=== PATIENT | female | born 2005 | race Caucasian/White ===

== ENCOUNTER 2024-09-13 00:01 | Emergency (ER) | payer BC, SELFPAY ==
[2024-09-13 00:03] VITALS: BP 126/78; PULSE 75; RESP 16; TEMP 36.3; O2SAT 98; BMI 19.8
--- NOTE | 2024-09-13 00:53 | ED_ITS ---
HPI - General Adult General Chief complaint: Animal Bite Stated complaint: dog bite to the face Time Seen by Provider: 09/13/24 00:02 Source: patient and family Mode of arrival: ambulatory Limitations: no limitations History of Present Illness HPI narrative: 19-year-old female presents to the emergency department for evaluation of a dog bite to the face that happened about 30 minutes prior to arrival. This was a rescue dog that the family owns and cares for. He is up-to-date on vaccines and has been appropriately tested, medical needs are all managed. The dog has not previously shown aggression per their report but patient need in to kiss him good night and he bit her, causing a laceration underneath the right eye and left nostril area. No oral injury, no head trauma otherwise. No other areas of injury. Patient is not immunocompromised, taking immunosuppressants or has a history of immune disease. They did not wash out the wound. Last tetanus shot is unknown, but did have her routine childhood vaccines. Past medical history notable for some depression, she reports that this is well managed on her combination of nortriptyline, Adderall, trazodone. No known drug allergies. ROS is notable for the skin changes as above. Denies any other HEENT, respiratory, skin, neurological or muscular changes. Related Data Home Medications ?Medication ?Instructions ?Recorded ?Confirmed bupropion HCl 150 mg 24 hr tablet, 150 mg PO DAILY 09/13/24 09/13/24 extended release dextroamphetamine-amphetamine ER 1 cap PO DAILY 09/13/24 09/13/24 20 mg 24hr capsule,extend release propranolol 10 mg tablet mg PO 09/13/24 sertraline 100 mg tablet mg PO 09/13/24 Allergies Allergy/AdvReac Type Severity Reaction Status Date / Time No Known Drug Allergies Allergy Verified 09/13/24 00:07 [facility] Social History Smoking Status: Never smoker Non-prescribed substance use: denies use service: No Exam Const: Vital Signs, click to edit/add: Vital Signs - 24 hr 09/13/24 00:03 Temperature 97.3 F L Pulse Rate [Left P ulse Oximeter] 75 Respiratory Rate 16 Blood Pressure [Ri ght Upper Arm] 126/78 Pulse Oximetry 98 Oxygen Delivery Me thod Room Air Documenting provider has reviewed patient's vital signs: yes Common normals: no apparent distress General appearance: cooperative Other: Funny, articulate. Excellent mentation, good historian. HENMT: Other: Scalp and hairline with no signs of injury, no skull depression. There is a 2 cm perfectly horizontal laceration 2 cm inferior to the right eye, along the cheek bone. It gapes 4 mm in the center. Dermal depth, oozing but no pumping.. There is a slight abrasion underneath the left eye, no gaping. There is a 8 mm jagged puncture wound at the left nostril near the superior pole of the nasal labial fold. This does articulate with the inner nasal mucosa. It does gape with movement of the nose and mouth. Not bleeding.. Eye: Common normals: PERRL, EOMs intact bilaterally and conjunctivae normal Conjunctiva: conjunctiva(e) normal Pupil: PERRL Neck & C-Spine: Common normals: full ROM and no lymphadenopathy General: normal visual inspection Resp: Common normals: normal respiratory effort Effort & inspection: able to speak in complete sentences Psych: Attention/concentration: attention grossly intact Memory/cognition: memory grossly intact Insight: insight good Judgement: judgment good Skin: Narrative: No other areas identified besides the facial lesions Course Course ED Course: Dog bite from known animal, appropriately rabies tested and can be observed for signs and symptoms of rabies. Counseled patient that cosmetically we could have poor outcome if we do not suture closed the wounds but this would slightly increase the risk of infection. We can mitigate some of this risk with the use of oral antibiotics like Augmentin. Verbal consent was obtained to proceed. Procedure: Laceration repair: Wounds were examined, wiped with alcohol wipe and then injected with 2 mL of lidocaine to the under right eye, 1 mL to the left nostril lesion. It was then meticulously cleaned with iodine, no signs of foreign body seen. Attention was 1st to the infraorbital lesion on the right. This was closed in a running fashion with 6 0 nylon suture, 5 throws total. Excellent cosmetic closure and hemostasis. Attention was then turned to the nostril lesion. A [id number] stitch was used to close this with good tissue reapproximation and hemostasis. Both were well tolerated. Both covered in antibiotic ointment and Band-Aids. Instructed on wound care. Try to keep the current Band-Aids on for at least the next 8 hours. Then may shower as usual. Try to avoid aggressive scrubbing over the suture and avoid moisturizers and topical cause medics to the wounds for the next week. Apply antibiotic ointment or plain Vaseline twice daily. Suture removal in 5 days, will need to make a clinic appointment. Consider covering with Dermabond if not completely closed once sutures are removed but early removal will reduce the risk of scarring. Instructed on use of sunblock to help improve cosmetic outcomes for the next few months. We discussed signs and symptoms of infection. More likely to happen a few days after the injury not in the 1st 24 hours. Okay to use Tylenol and/or ibuprofen for mild discomfort. Augmentin 875 p.o. b.i.d. for 7 days, start tonight. Written instructions provided, alarm symptoms reviewed. Vital Signs Vital signs: Initial Vital Signs Temperature 97.3 F L 09/13/24 00:03 Temperature Source Temporal Artery Scan 09/13/24 00:03 Pulse Rate 75 09/13/24 00:03 Pulse Rhythm Regular 09/13/24 00:03 Respiratory Rate 16 09/13/24 00:03 Blood Pressure 126/78 09/13/24 00:03 Blood Pressure Mean 94 09/13/24 00:03 Blood Pressure Position Sitting 09/13/24 00:03 Pulse Oximetry 98 09/13/24 00:03 Oxygen Delivery Method Room Air 09/13/24 00:03 Vital Signs Temperature 97.3 F L 09/13/24 00:03 Pulse Rate 75 09/13/24 00:03 Respiratory Rate 16 09/13/24 00:03 Blood Pressure 126/78 09/13/24 00:03 Pulse Oximetry 98 09/13/24 00:03 Oxygen Delivery Method Room Air 09/13/24 00:03 Temperature 97.3 F L 09/13/24 00:03 Pulse Rate 75 09/13/24 00:03 Respiratory Rate 16 09/13/24 00:03 Blood Pressure 126/78 09/13/24 00:03 Pulse Oximetry 98 09/13/24 00:03 Oxygen Delivery Method Room Air 09/13/24 00:03 Discharge Plan Discharge Clinical Impression: Dog bite Patient Disposition: Home w/ Parent or Adult Condition: Improved Instructions: Animal Bite (ED) Additional Instructions: As we discussed, closure of these wounds can increase the risk of infection but cosmetically it was the right choice in this situation. The swelling and bruising around the eye will be much more noticeable tomorrow. It will take up to a week to improve. Try to keep the current Band-Aid on for 12 hours if possible. Sports would not be prohibited for the next 48 hours but they do increase your risk of the stitches coming out, worse scarring and infection. Plus, your eye is likely to be swollen and your vision may not be ideal, putting you at risk of other injuries. It would be in your best interest to sit this match out, but not strictly prohibited. Please call the clinic and make an appointment to have the stitches removed in about 5-6 days. The wound will not be completely healed at that point but this will reduce the risk of scarring. Please bring this paperwork with you to the appointment. Underneath the right eye, a total of 5 stitches were placed in a running fashion. Clipping either not and then pulling on the opposite 1 should allow the remaining suture to slide easily. The left nostril has a single figure of 8 stitch, should come out in 1 pull. Please apply antibiotic ointment a couple of hours before the appointment to soften the skin and allow the suture to slide out more easily. It is very small suture and may be difficult to see. Try not to shower for the 1st 8-10 hours. After that, you may shower as usual but be very gentle about washing around the stitches areas and do not apply any moisturizer or makeup around the stitch. Keep the stitches covered with Vaseline or antibiotic ointment, applied twice daily. You may cover with Band- Aids also if you prefer. Infections are fairly rare but would manifest as increased redness, drainage and swelling and would typically not occur in the 1st couple of days. To help reduce the risk of infection I have started you on an antibiotic, Augmentin. Pick this up from the vending machine and take your 1st dose right away. Continue taking 1 pill 2 times per day for 7 days. You ma y use Tylenol 1000 mg every 6 hours and or ibuprofen 600 mg every 6 hours as needed for discomfort. Be careful with ice as thermal damage could worsen things. You are cleared to return to work. Activity Level: Activity as Tolerated Discharge Diet: Regular Prescriptions: No Action sertraline 100 mg tablet PO propranolol 10 mg tablet PO dextroamphetamine-amphetamine 20 mg capsule,extended release 24hr 1 cap PO DAILY bupropion HCl 150 mg tablet extended release 24 hr 150 mg PO DAILY Stand Alone Forms: [employer] Info Instructions
[2024-09-13] MEDS: TETANUS-DIPHTHERIA TOXOIDS/PF 0.5 ML SYRINGE IM (00:54)
== END 2024-09-13 01:03 | disposition home or self-care (01) ==
LOC: ED 00:57
PROVIDERS: Emergency Provider Family Medicine; PCP Pediatrics
DX: S01.21XA Laceration without foreign body of nose, initial encounter (principal); S01.111A Laceration without foreign body of right eyelid and periocular area, initial encounter; W54.0XXA Bitten by dog, initial encounter; Z23 Encounter for immunization
CPT/HCPCS: 12011; 90471; 90714; 99283

== ENCOUNTER 2024-09-18 21:39 | Emergency (ER) | payer BC, SELFPAY ==
--- OUTSIDE RECORDS SUMMARY | 2024-09-16 14:20 | XMS_ITS | Encounter Summary ---
Author Organization [facility] Address [address] [address] Care Team Providers Care Supervisor Maintenance And Custodians Name Role Phone Jolene Goyal PA-C Primary Care Provider Reason for Visit * Reason Comments Infection, Wound Right under eye dog bite happened 09/13, stitches [facility], possible suture removal todayPus leaking from wound as of this morning, pain in the area of the sutures, swelling On oral abx Tdap updated Encounter Details Date Type Department Care Team (Late st Contact Info) Description 09/16/2024 2:20 PM CDT Office Visit [place] [facility] [id number] [facility] [id number] [place] [id number] Tam Ortega PA-C [address] [facility] [place] [address] Wound infection; Infected dog bite Social History Tobacco Use Types Packs/Day Years Used Date Smoking Tobacco: Never Passive Smoke Exposure: Never Smokeless Tobacco: Never Alcohol Use Standard Drinks/Week Comments Never 0 (1 standard drink = 0.6 oz pur e alcohol) PHQ-2 Answer Date Recorded PHQ-2 Score 1 10/29/2023 Financial Resource Strain Answer Date R ecorded Is it hard for you to pay fo r the very basics like food, housing, medical care or heating? No 12/05/2022 Food Insecurity Answer Date Recorded Does your food run out before you have the money to buy more? No 12/05/2022 Transportation Needs Answer Date Record ed Does a lack of transportatio n keep you from your medical appointments or from getting your medications? No 023 Comments No Sex and Gender Information Value Date Recorded Sex Assigned at Not on file Legal Sex Female 9:17 PM CDT Gender Identity Not on file Sexual Orientation Not on file documented as of this encounter Last Filed Vital Signs Vital Sign Reading Time Taken Comments Blood Pressure 106/63 09/16/2024 1:56 PM CDT Pulse 81 09/16/2024 1:56 PM CDT Temperature 36.6 C (97.8 F) 09/16/2024 1:56 PM CDT Respiratory Rate 18 09/16/2024 1:56 PM CDT Oxygen Saturation 98% 09/16/2024 1:56 PM CDT Inhaled Oxygen Concentration - - Weight - - Height - - Body Mass Index - - documented in this encounter Patient Instructions * Patient Instructions* Tam Ortega PA-C - 09/16/2024 2:20 PM CDT Begin taking the new antibiotics tonight with dinner. Return to urgent care tomorrow for a recheck of the wound. If overnight, you experience increasing redness, pain, fever or flu-like symptoms you need to go directly to the emergency room. Begin taking a daily probiotic. documented in this encounter Progress Notes * Tam Ortega PA-C - 09/16/2024 2:20 PM CDT Images from the original note were not included. Betty Quintero is a 19 y.o.female presents to the Urgent Care for Infection, Wound (Right under eye dog bite happened 09/13, stitches placed at [facility], possible suture removal today//Pus leaking from wound as of this morning, pain in the area of the sutures, swelling //On oral abx /Tdap updated ) Taking Augmentin Patient presents to urgent care for a wound check. She experienced a dog bite under her right eye on September 13, 3 days ago. She went to the ER and had sutures placed. She was placed on Augmentin and her Tdap was updated. Today she noticed pus leaking from the wounds. The site has been more painful and swollen. She continues to have swelling around her right eye which was present initially after the dog bite. She denies increased redness around the bite area. She denies fever or flu-like symptoms. Remainder of review of systems is negative. 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 disorder Dyscalculia Lactose intolerance Other specified depressive episodes Chronic pain of right knee Tension headache Adverse Drug Reactions: Lactose Medications: amphetamine-dextroamphetamine XR, buPROPion, propranolol, sertraline, tiZANidine, and traZODone Family History: Family History Problem Relation Name Age of Onset Allergies Mother Cancer, Uterine Maternal Grandmother Other (pneumonia) Maternal Grandmother Renal Failure Maternal Grandfather dialysis Heart Attack Maternal Grandfather , 77 Cancer, Breast Paternal Grandmother Diabetes Paternal Grandmother Cancer, Brain Paternal Grandfather , 65 Cancer, Lung Paternal Grandfather Other (epilepsy) Paternal Grandfather Social History: Social History Tobacco Use Smoking status: Never Passive exposure: Never Smokeless tobacco: Never Vaping Use Vaping status: Never Used Substance Use Topics Alcohol use: Never Drug use: Never Review of Systems: All systems were reviewed and found to be negative except as noted above. OBJECTIVE: General: NAD Skin: Mucous membranes are moist, no sign of dehydration. Head: Normocephalic. Eyes: PERRLA, full EOM. External exams normal. Patient has swelling surrounding the right upper andlower eyelid. Ears: Normal pinnae, canals. TM's:[normal] Nose: Patent, without deformity. Throat: Moist mucous membranes without lesions, erythema, or exudate. Cheek: Patient has a 4 cm long horizontal laceration across her right cheek. There is small amount of yellow exudate from the site. A running suture is used to approximate the wound. There is mild surrounding erythema but no obvious cellulitis. Respiratory: Normal respiratory effort. Lungs are clear with good breath sounds. Heart: RR without murmurs, rubs, or gallops. Vital Signs: BP 106/63 (BP Location: Right Arm, BP Cuff Size: Regular) Pulse 81 Temp 36.6 ??C (97.8 ??F) (Oral) Resp 18 SpO2 98% Orders Placed This Encounter ampicillin-sulbactam (UNASYN) injection 3 g Labs: No results found for any visits on 09/16/24. ASSESSMENT: 1. Wound infection 2. Infected dog bite Medical Decision Makin-year-old female presenting for a wound check after a dog bite 3 days ago. Today she noticed pus from the site. Physical exam shows a small amount of exudate from the laceration site. I did remove the sutures. A moderate amount of thick, yellow drainage was able to be extracted from the wound. This was sent for culture. Patient does have swelling to her upper and lower eyelid however this has been present since the initial dog bite. There is very mild erythema surrounding the laceration which appears more secondary to the healing process than true cellulitis. At this point, I would like to trial outpatient antibiotics now that the wound has been opened and drained. The patient will stop taking her Augmentin. I placed her on Bactrim and clindamycin to be taken asdirected. She will be contacted if her culture shows the need to change her antibiotic. Patient wasgiven a dose of Unasyn in clinic. I recommend close follow-up. I would like her to return to urgentcare tomorrow for a recheck. If there is increase in redness, exudate or if she would develop fever she needs to go directly to the emergency room. PLAN: Orders Placed This Encounter ampicillin-sulbactam (UNASYN) injection 3 g There are no Patient Instructions on file for this visit. Orders Placed This Encounter Medications DISCONTD: cefTRIAXone (ROCEPHIN) 1,000 mg in lidocaine PF (XYLOCAINE) 1 % 350 mg/mL IM injection ampicillin-sulbactam (UNASYN) injection 3 g RTC p.r.n. Total visit time was 30 minutes. documented in this encounter Nursing Notes * Beryl Mo RN - 09/16/2024 2:20 PM CDT Betty Quintero is a 19 y.o.female presents to the Urgent Care for Infection, Wound (Right under eye dog bite happened 09/13, stitches placed at [facility], possible suture removal today//Pus leaking from wound as of this morning, pain in the area of the sutures, swelling //On oral abx /Tdap updated ) Taking Augmentin documented in this encounter Plan of Treatment Pending Results Name Type Priority Associated Diagnoses Date /Time Aerobic Culture Microbiology Routine Wound infection Infected dog bite 09/16/2024 2:59 PM CDT documented as of this encounter Procedures Procedure Name Priority Date/Time Associated Diagnosis Comments AEROBIC CULTURE Routine 09/16/2024 2:59 PM CDT Wound infection Infected dog bite documented in this encounter Visit Diagnoses Diagnosis Wound infection Posttraumatic wound infection not elsewhere classified Infected dog bite Open wound(s) (multiple) of unspecified site(s), complicated documented in this encounter Administered Medications Inactive Administered Medications - up to 3 most recent administrations Medication Order MAR Action Action Date Dose Rate Site ampicillin-sulbactam (UNASYN) injection 3 g 3 g, Intramuscular, ONCE, On Sun09/16/24 at 1445, For 1 dose, Dilute 3 gram vial with 6.4 mL sterile water for injection. Final conentration is 375 mg/mL solutions (250mg ampicillin/125 mg sulbactam per mL)., Indications: Skin and Soft Tissue InfectionIndications:Skin and Soft Tissue Infection Given 09/16/2024 2:46 PM CDT 3 g O ther documented in this encounter Care Teams Supervisor Maintenance And Custodians Relationship Specialty Start Date End Date Jolene Goyal PA-C [id number] [place] [address] PCP - General Physician Terra Cotta Roofer 06/11/24 documented as of this encounter
--- OUTSIDE RECORDS SUMMARY | 2024-09-17 14:00 | XMS_ITS | Encounter Summary ---
Author Organization [employer] Address [address] [address] Care Team Providers Care Hoop Bender Tank Name Role Phone Jolene Goyal PA-C Primary Care Provider Reason for Visit * Reason Comments Animal Bite Follow-up Encounter Details Date Type Department Care Team (Late st Contact Info) Description 09/17/2024 2:00 PM CDT [facility] [address] [place] [address] Tam Ortega PA-C [address] [place] [address] Wound infection; Infected dog bite; Visit for wound check Social History Tobacco Use Types Packs/Day Years [...] Sign Reading Time Taken Comments Blood Pressure 99/70 09/17/2024 1:57 PM CDT Pulse 104 09/17/2024 1:57 PM CDT Temperature 36.8 C (98.3 F) 09/17/2024 1:57 PM CDT Respiratory Rate 16 09/17/2024 1:57 PM CDT Oxygen Saturation 98% 09/17/2024 1:57 PM CDT Inhaled Oxygen Concentration - - Weight - - Height - - Body Mass Index - - documented in this encounter Patient Instructions * Patient Instructions* Tam Ortega PA-C - 09/17/2024 2:00 PM CDT Continue to take the clindamycin and bactrim with food. Continue to monitor. If redness, pain or swelling worsens or you develop a fever, go to the ER. Text me with questions. documented in this encounter Progress Notes * Tam Ortega PA-C - 09/17/2024 2:00 PM CDT Images from the original note were not included. Pt was seen in the [facility] yesterday for care for a dog bite. Pt has been taking the prescribed medications and working on draining pus, per direction from provider. Pt here for follow up w/ Tam Ortega, as directed. Pt reports having upset stomach from abx - otherwise some improvement. Patient presents to urgent care for a recheck of a wound infection from a dog bite. I saw her yesterday in the urgent care. During that visit I was able to drain a moderate amount of pus from the wound on the patient's right cheek. At that time she had surrounding erythema and swelling around her right eye. She was afebrile. She was given an injection of Unasyn in clinic. She was then discharged home on Bactrim and clindamycin. She states overnight the redness has improved along with the swelling around her eye. She continues to be afebrile. She states the pain is improving as well. Remainderreview of systems is negative. 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 disorder Dyscalculia Lactose intolerance Other specified depressive episodes Chronic pain of right knee Tension headache Adverse Drug Reactions: Lactose Medications: amphetamine-dextroamphetamine XR, buPROPion, clindamycin, propranolol, sertraline, sulfamethoxazole-trimethoprim, tiZANidine, and traZODone Family History: Family History [...] Eyes: PERRLA, full EOM. External exams normal. Ears: Normal pinnae, canals. TM's:[normal] Nose: Patent, without deformity. Cheek: Patient has reduce inflammation and redness on her right cheek. The swelling around her right eye has been reduced. There is only a small amount of exudate from the wound. Throat: Moist mucous membranes without lesions, erythema, or exudate. Respiratory: Normal respiratory effort. Lungs are clear with good breath sounds. Heart: RR without murmurs, rubs, or gallops. Vital Signs: BP 99/70 (BP Location: Left Arm, BP Cuff Size: Small Adult/Large Pediatrics) Pulse (!) 104 Temp 36.8 ??C (98.3 ??F) (Oral) Resp 16 SpO2 98% Orders Placed This Encounter Complete Blood Count -W/Diff Labs: Results for orders placed or performed in visit on 09/17/24 Complete Blood Count-W/Diff Result Value Ref Range WBC 6.2 3.5 - 10.5 x10(9)/L RBC 4.08 3.90 - 5.03 x10(12)/L Hemoglobin 12.5 12.0 - 15.5 g/dL HCT 37.5 34.9 - 44.5 % MCV 91.9 80.0 - 100.0 fL MCH 30.6 27.6 - 33.3 pg MCHC 33.3 31.5 - 35.2 g/dL RDW 12.0 11.9 - 15.5 % Platelets 243 150 - 450 x10(9)/L Automated NRBC 0 <=0 /100 WBC Neutrophil Absolute 3.7 1.7 - 7.0 10(9)/L Lymphocyte Absolute 1.4 1.0 - 4.8 10(9)/L Monocyte Absolute 0.4 0.2 - 0.9 10(9)/L Eosinophil Absolute 0.6 (H) 0.0 - 0.5 10(9)/L Basophil Absolute 0.1 0.0 - 0.3 10(9)/L Immature Granulocyte % 0.2 0.0 - 0.5 % ASSESSMENT: 1. Wound infection 2. Infected dog bite 3. Visit for wound check Medical Decision Makin-year-old female presenting with a wound check. Yesterday she was diagnosed with an abscess and cellulitis following a dog bite to her right cheek. At that time, she was afebrile and nontoxic appearing. Because of this, I placed her on Bactrim and clindamycin for a trial of outpatient antibiotic treatment. Overnight her symptoms have improved. She does have some slight nausea from the clindamycin but denies vomiting or diarrhea. She states the redness, swelling and pain has improved. She continues to be afebrile. Physical exam today shows marked improvement since yesterday. I did obtain a white count which was normal. At this point, I feel we can continue oral antibiotic treatment. She will continue taking the prescribed antibiotics. I continue to recommend close monitoring. If the redness, swelling or pain would worsen or she would develop fever she needs to go to the emergency room. PLAN: Orders Placed This Encounter Complete Blood Count -W/Diff Patient Instructions Continue to take the clindamycin and bactrim with food. Continue to monitor. If redness, pain or swelling worsens or you develop a fever, go to the ER. Text me with questions. No orders of the defined types were placed in this encounter. RTC p.r.n. Total visit time was 30 minutes. documented in this encounter Nursing Notes * Lindsay Diana, RN - 09/17/2024 2:00 PM CDT Pt was seen in the [facility] yesterday for care for a dog bite. Pt has been taking the prescribed medications and working on draining pus, per direction from provider. Pt here for follow up w/ Tam Ortega, as directed. Pt reports having upset stomach from abx - otherwise some improvement. 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
--- OUTSIDE RECORDS SUMMARY | 2024-09-17 14:30 | XMS_ITS | Encounter Summary ---
Author Organization [employer] Address [address] [address] Care Team Providers Care Counseling Department Chair Name Role Phone Jolene Goyal PA-C Primary Care Provider Encounter Details Date Type Department Care Team (Late st Contact Info) Description 09/17/2024 2:30 PM CDT Lab Visit [facility] [address] [place] [address] Wound infection Social History Tobacco Use Types Packs/Day Years [...] on file documented as of this encounter Plan of Treatment Not on file documented as of this encounter Procedures Procedure Name Priority Date/Time Associated Diagnosis Comments CBC AND DIFFERENTIAL PANEL STAT 09/17/2024 2:31 PM CDT Wound infection COMPLETE BLOOD COUNT-W/DIFF STAT 09/17/2024 2:31 PM CDT Wound infection documented in this encounter Results * (ABNORMAL) Complete Blood Count-W/Diff (09/17/2024 2:31 PM CDT) WBC 6.2 3.5 - 10.5 x10(9)/L 09/17/2024 2:40 PM [facility] RBC 4.08 3.90 - 5.03 x10(12)/L 09/17/2024 2:40 PM [facility] Hemoglobin 12.5 12.0 - 15.5 g/dL 09/17/2024 2:40 PM [facility] HCT 37.5 34.9 - 44.5 % 09/17/2024 2:40 PM [facility] MCV 91.9 80.0 - 100.0 fL 09/17/2024 2:40 PM [facility] MCH 30.6 27.6 - 33.3 pg 09/17/2024 2:40 PM [facility] MCHC 33.3 31.5 - 35.2 g/dL 09/17/2024 2:40 PM [facility] RDW 12.0 11.9 - 15.5 % 09/17/2024 2:40 PM [facility] Platelets 243 150 - 450 x10(9)/L 09/17/2024 2:40 PM [facility] Automated NRBC 0 <=0 /100 WBC 09/17/2024 2:40 PM [facility] Neutrophil Absolute 3.7 1.7 - 7.0 10(9)/L 09/17/2024 2:40 PM [facility] Lymphocyte Absolute 1.4 1.0 - 4.8 10(9)/L 09/17/2024 2:40 PM CDT [facility] Monocyte Absolute 0.4 0.2 - 0.9 10(9)/L 09/17/2024 2:40 PM CDT [facility] Eosinophil Absolute 0.6(H) 0.0 - 0.5 10(9)/L 09/17/2024 2:40 PM CDT [facility] Basophil Absolute 0.1 0.0 - 0.3 10(9)/L 09/17/2024 2:40 PM CDT [facility] Immature Granulocyte % 0.2 0.0 - 0.5 % 09/17/2024 2:40 PM CDT [facility] Blood Venipuncture / Unknown 09/17/2024 2:31 PM CDT 09/17/2024 2:38 PM CDT Tam Ortega PA-C LAB_1 Final Resul t Performing Organization Address City/State/[facility] Co de Phone Number [facility] [address] [place] [address] documented in this encounter Visit Diagnoses Diagnosis Wound infection Posttraumatic wound infection not elsewhere classified documented in this encounter Care Teams Counseling Department Chair Relationship Specialty Start Date End Date Jolene Goyal PA-C [address] [place] [address] PCP - General Physician Landcare Officer 06/11/24 documented as of this encounter
--- OUTSIDE RECORDS SUMMARY | 2024-09-18 21:42 | XMS_ITS | Clinical Summary ---
Author Organization [employer] Address [address] [address] Care Team Providers Care Child Development Teacher Name Role Phone Jolene Goyal PA-C Primary Care Provider [phone] Source Comments You are receiving this document as you are listed as the primary care provider,follow-up provider, or the patient has been referred to you for consultation.This is in compliance with the Medicare and[facility] EHR Incentive Program,which states Providers who transition their patient to another setting of careor provider of care or refers their patient to another provider of care shouldprovide summary care record for each transition of care or referral. [employer] Allergies Active Allergy Reactions Criticality Noted Date Comments Lactose Gastrointestinal Medium 04/15/2020 Medications * This document contains information received from the source organization and may not represent a complete record from that organization. tiZANidine (ZANAFLEX) 4 MG tabletIndicatio ns:Tension headache Take 1 Tablet (4 mg) by mouth every 6 hours as needed. 30 Tablet 4 Active traZODone (DESYREL) 50 MG tablet Take 0.5-1 Tablets (25-50 mg) by mouth at bedtime as needed for Sleep. 60 Tablet 3 5 06/13/19 26 Active sertraline (ZOLOFT) 100 MG tabletIndicatio ns:Other specified depressive episodes,Genera lized anxiety disorder (HRC) Take 1.5 Tablets (150 mg) by mouth daily. 135 Tablet 1 5 Active propranolol (INDERAL) 10 MG tablet TAKE 1-2 TABLETS (10-20MG) TWICE DAILY NEEDED FOR ANXIETY. IF TOLERATING, TRY TAKING 20MG DAILY FOR MIGRAINE PREVENTION. 120 Tablet 1 5 Active buPROPion (WELLBUTRIN XL) 300 MG 24 hour release tablet Take 1 Tablet (300 mg) by mouth daily. 90 Tablet 1 5 Active amphetamine-dex troamphetamine XR (ADDERALL XR) 20 MG 24 hour release capsule Take 1 Capsule (20 mg) by mouth daily for 30 days. 30 Capsule 5 Active amphetamine-dex troamphetamine XR (ADDERALL XR) 20 MG 24 hour release capsule Take 1 Capsule (20 mg) by mouth daily for 30 days. Do not start before August 12, 2024. 30 Capsule 5 Active amphetamine-dex troamphetamine XR (ADDERALL XR) 20 MG 24 hour release capsule Take 1 Capsule (20 mg) by mouth daily for 30 days. OK TO FILL NOW 07/25/24 D/T MISPLACED MEDICATION. 30 Capsule 5 Active sulfamethoxazol e-trimethoprim (BACTRIM DS) 800-160 MG tablet Take 1 Tablet by mouth two times a day for 7 days. 14 Tablet 5 09/24/19 25 Active clindamycin (CLEOCIN) 300 MG capsule Take 1 Capsule (300 mg) by mouth three times a day for 7 days. 21 Capsule 5 09/24/19 25 Active Hospital, Clinic, or Other Facility Administered Medication Ordered Dose Route Frequency Start Date End Date Status cefTRIAXone (ROCEPHIN) 1,000 mg in lidocaine PF (XYLOCAINE) 1 % 350 mg/mL IM injectionIndications: Skin and Soft Tissue Infection 1000 mg IM ONCE 09/16/2024 09/16/2024 Discontinued ampicillin-sulbactam (UNASYN) injection 3 gIndications:Skin and Soft Tissue Infection 3 g IM ONCE 09/16/2024 09/16/2024 End ed Active Problems Problem Noted Date Diagnosed Date Tension headache 05/10/2023 Chronic pain of right knee 01/16/2022 Other specified depressive episodes 08/24/2020 Lactose intolerance 03/31/2020 Dyscalculia 11/07/2019 Chronic motor or vocal tic disorder 09/04/2019 Generalized anxiety disorder 06/24/2019 Attention deficit hyperactivity disorder, inatte ntive type 06/24/2019 Resolved Problems Problem Noted Date Diagnosed Date Resolved Date Adjustment disorder with depressed mood 04/15/2020 07/06/2020 Chronic nausea 07/01/2019 11/02/2021 Early satiety 07/01/2019 11/02/2021 Closed fracture of clavicle 09/22/2009 09/22/2009 Overview (12/20/2016): LW Onset: august 2008 ; Fx Clavicle Closed Wheezing 07/17/2006 06/24/2019 Pneumonia due to organism 06/22/2006 Overview (12/20/2016): LW Onset: may 2006 ; Pneumonia NOS Encounters * This document contains information received from the source organization and may not represent a complete record from that organization. Date Type Department Care Team Description 09/17/2024 2:30 PM CDT Lab Visit [facility] [address] [place] [address] Wound infection 09/17/2024 2:00 PM CDT [facility] [address] [place] [address] Tma Ortega, KEYSHA Wound infection; Infected dog bite; Visit for wound check 09/16/2024 2:20 PM CDT Office Visit [facility] [address] [facility] [id number] [place] [phone] Tam Ortega, MILADYSC Wound infection; Infected dog bite from Last 3 Months Immunizations Immunization Administration Dates Next Due 9vHPV (Gardasil 9) 08/19/2018,12/07/2015 QEvK-LlyL-POI (Pediarix) 02/09/2005,2004,0 2004 DTaP-IPV (Kinrix, 4-6 yrs) 09/22/2009 DTaP/Hib 10/24/2005 Flu Vac Preserv Free (3+yrs) 03/23/2010,01/16/20 09,03/09/2008 Flu Vac Preserv Free (6-35 mo) 7,03/28/2006,05/11/2005,2004 HepA Ped/Adol (1-18 yrs) 07/22/2008,07/17/2006 Hib (PedvaxHIB) 2004,2004 Influenza (Flucelvax), Prese rv Free QIV 05/10/2023 Influenza (Fluzone 0.25, 6-35 mos) 03/24/2013 Influenza IIV4 (Quadrivalent ) 0.5mL (20867) 01/16/2020,01/12/2017,03/20/2014,2012 Influenza, Unspecified Formulation 03/23,01/15/2009,02/14/2007,2005,05/11/2005,03/10/2005 MCV4 Menveo 2m.+ (two vial) 11/02/2021, 6 MMR 09/22/2009,07/18/2005 Pneumococcal 7, PED 10/24/2005, 5,2004,2004 TDAP (BOOSTRIX) 12/07/2015 Varicella 09/22/2009,07/18/2005 Family History Medical History Relation Name Comments Allergies Mother Heart Attack Maternal Grandfather d, 77 Renal Failure Maternal Grandfather dialys is Cancer, Uterine Maternal Grandmother pneumonia Maternal Grandmother d Cancer, Brain Paternal Grandfather deceas ed, 65 Cancer, Lung Paternal Grandfather epilepsy Paternal Grandfather Cancer, Breast Paternal Grandmother Diabetes Paternal Grandmother Relation Name Status Comments Mother Maternal Grandfather Maternal Grandmother Paternal Grandfather Paternal Grandmother Social History Tobacco Use Types Packs/Day Years Used Date Smoking Tobacco: Never Passive Smoke Exposure: Never Smokeless Tobacco: Never Tobacco Cessation:Counseling Given: Not Answered Alcohol Use Standard Drinks/Week Comments Never 0 [...] on file Sexual Orientation Not on file Last Filed Vital Signs Vital Sign Reading Time Taken Comments Blood Pressure 99/70 09/17/2024 1:57 PM CDT Pulse 104 09/17/2024 1:57 PM CDT Temperature 36.8 C (98.3 F) 09/17/2024 1:57 PM CDT Respiratory Rate 16 09/17/2024 1:57 PM CDT Oxygen Saturation 98% 09/17/2024 1:57 PM CDT Inhaled Oxygen Concentration - - Weight 60.1 kg (132 lb 8 oz) 02/07/2024 11:05 AM CDT Height 172 cm (5' 7.7) 02/07/2024 11:05 AM CDT Body Mass Index 20.33 02/07/2024 11:05 AM CDT Plan of Treatment Health Maintenance Due Date Last Done Comments Hep C Screening (Preventive Services) 2004 MenB Immunization Discussion 2004 HIV Screening (Preventive Services) 2020 Chlamydia 11/02/2022 11/02/2021 Adult Preventive Visit 12/06/2023 , 11/02/2021, 07/15/2018 COVID-19 Vaccine ( season) 2023 Influenza Vaccine (Season Ended) 2024 05/10/2023, 01/16/2020, 01/12/2017, Additional history exists DTaP/Tdap/Td Vaccine (7 - Tdap) 12/06/2025 12/07/2015, 09/22/2009, 10/24/2005, Additional history exists Zoster/Shingles Vaccine (1 of 2) 2054 HepB Vaccine Completed 02/09/2005, 11/28, 2004 Hib Vaccine Completed 10/24/2005, 11/28, 2004 Pneumococcal Vaccine Aged Out 10/24/2005, 02/09/2005, 2004, Additional history exists No longer eligible based on patient's age to complete this topic HepA Vaccine Completed 07/22/2008, 07/17/2006 IPV (Polio) Vaccine Completed 09/22/2009, 02/09/2005, 2004, Additional history exists Varicella Vaccine Completed 09/22/2009, 07/18/2005 HPV Vaccine Completed 08/19/2018, 12/07/2015 MCV4 Vaccine Completed 11/02/2021, 12/07/2015 Procedures Procedure Name Priority Date/Time Associated Diagnosis Comments COMPLETE BLOOD COUNT-W/DIFF STAT 09/17/2024 2:31 PM CDT Wound infection CBC AND DIFFERENTIAL PANEL STAT 09/17/2024 2:31 PM CDT Wound infection AEROBIC CULTURE Routine 09/16/2024 2:59 PM CDT Wound infection Infected dog bite CHLAMYDIA & GC, URINE (14 YEARS AND OLDER) Routine 11/02/2021 10:59 AM CDT Routine screening for STI (sexually transmitted infection) from Last 3 Months or Most Recently Relevant to Health Maintenance Results * (ABNORMAL) Complete Blood Count-W/Diff (09/17/2024 2:31 PM CDT) WBC 6.2 3.5 - 10.5 x10(9)/L 09/17/2024 2:40 PM CDT [facility] RBC 4.08 3.90 - 5.03 x10(12)/L 09/17/2024 2:40 PM CDT [facility] Hemoglobin 12.5 12.0 - 15.5 g/dL 09/17/2024 2:40 PM CDT [facility] HCT 37.5 34.9 - 44.5 % 09/17/2024 2:40 PM CDT [facility] MCV 91.9 80.0 - 100.0 fL 09/17/2024 2:40 PM [facility] MCH 30.6 27.6 - 33.3 pg 09/17/2024 2:40 PM [facility] MCHC 33.3 31.5 - 35.2 g/dL 09/17/2024 2:40 PM [facility] RDW 12.0 11.9 - 15.5 % 09/17/2024 2:40 PM [facility] Platelets 243 150 - 450 x10(9)/L 09/17/2024 2:40 PM [facility] Automated NRBC 0 <=0 /100 WBC 09/17/2024 2:40 PM [facility] Neutrophil Absolute 3.7 1.7 - 7.0 10(9)/L 09/17/2024 2:40 PM [facility] Lymphocyte Absolute 1.4 1.0 - 4.8 10(9)/L 09/17/2024 2:40 PM [facility] Monocyte Absolute 0.4 0.2 - 0.9 10(9)/L 09/17/2024 2:40 PM [facility] Eosinophil Absolute 0.6(H) 0.0 - 0.5 10(9)/L 09/17/2024 2:40 PM [facility] Basophil Absolute 0.1 0.0 - 0.3 10(9)/L 09/17/2024 2:40 PM [facility] Immature Granulocyte % 0.2 0.0 - 0.5 % 09/17/2024 2:40 PM [facility] Blood Venipuncture / Unknown 09/17/2024 2:31 PM CDT 09/17/2024 2:38 PM CDT Tam Ortega PA-C LAB_1 Final Resul t [facility] [address] [place] [address] * Chlamydia & GC, Urine (14 Years and Older) (11/02/2021 10:59 AM CDT) Chlamydia Trachomatis STD Not Detected Not Detected 11/03/2021 6:37 AM T [facility] N. gonorrhoeae STD Not Detected Not Detected 11/03/2021 6:37 AM CDT [facility] Urine STD (Urine for STD) Non-blood Collection / Unknown 11/02/2021 10:59 AM CDT 11/02/2021 11:10 AM CDT Narrative [facility] - 11/03/2021 6:37 AM CDT Test performed by Physician Relations Specialist Mediated Amplification (TMA). Urine Volume submitted was greater than 30 ml. Excess collection volume may decrease test sensitivity. Recollection suggested if clinically indicated. us Rena Hawthorne APRN, INVESTMENT SALES ASSISTANT LAB_1 Final Result [facility] [address] [address] [phone] from Last 3 Months or Most Recently Relevant to Health Maintenance Insurance [facility] Care Teams Child Development Teacher Relationship Specialty Start Date End Date Jolene Goyal PA-C [address] [place] [address] PCP - General Physician Electrical Drafter 06/11/24
[2024-09-18 21:46] VITALS: BP 117/73; PULSE 84; RESP 18; TEMP 36.8; O2SAT 97; BMI 22.4
--- NOTE | 2024-09-18 22:18 | ED.GENADULT ---
HPI - General Adult General Chief complaint: Allergic Reaction Stated complaint: Possible infection, seen for dog bite Sunday Time Seen by Provider: 09/18/24 21:45 History of Present Illness HPI narrative: This 19-year-old female was accidentally bit by her dog about 5 days ago and came in here for suture repair and was started on Augmentin. She developed an infection despite taking Augmentin and went elsewhere to have it drained and. She is now on clindamycin and Bactrim and the wound is looking good. She does feel of firm area below the wound but there is no sign of drainage or erythema. She also reports a itchy rash on her forearms only. Additionally she has some pain radiating down her right arm. She states that she has had pain radiating down her right arm from her neck in the past and she has seen a chiropractor for this. Related Data Home Medications ?Medication ?Instructions ?Recorded ?Confirmed bupropion HCl 150 mg 24 hr tablet, 150 mg PO DAILY 09/13/24 09/18/24 extended release dextroamphetamine-amphetamine ER 1 cap PO DAILY 09/13/24 09/18/24 20 mg 24hr capsule,extend release propranolol 10 mg tablet 10 mg PO 09/13/24 sertraline 100 mg tablet 150 mg PO 09/13/24 clindamycin HCl 300 mg capsule 300 mg PO 3XD 09/18/24 09/18/24 nortriptyline 25 mg capsule mg PO 09/18/24 sulfamethoxazole 800 1 tab PO BID 09/18/24 09/18/24 mg-trimethoprim 160 mg tablet trazodone 50 mg tablet 25 - 50 mg PO QPM PRN insomnia 09/18/24 09/18/24 Previous Rx's ?Medication ?Instructions ?Recorded methylprednisolone 4 mg tablets in See Rx Instructions PO .COMPLEX 09/18/24 a dose pack (Medrol (Eliot)) #21 ea triamcinolone acetonide 0.1 % 1 applic topical BID #30 grams 09/18/24 topical cream Allergies Allergy/AdvReac Type Severity Reaction Status Date / Time No Known Drug Allergies Allergy Verified 09/18/24 21:52 Review of Systems Status of ROS: Reports: 10 or more systems reviewed and unremarkable except as noted in History and below Narrative: Constitutional: No fevers, no weight gain or loss. Eyes: No discharge. No vision changes. HENT: No congestion, no sore throat, no ear pain. Cardiovascular: No chest pain, no palpitations. Respiratory: No shortness of breath, no wheezes, no cough. Gastrointestinal: No abdominal pain, no vomiting, no diarrhea. Genitourinary: No dysuria, no hematuria. Musculoskeletal: Normal range of motion. Skin: Pruritic rash on the volar aspect of each forearm only. Neurological: No dizziness, weakness, speech change. The patient reports pain and tingling radiating from the right side of her neck down into her right arm and hand. Endo/Heme/Allergies: No bruising or bleeding. No polydipsia. Pysch: no suicidality, no anxiety, no insomnia. All other systems reviewed and are negative. [facility] Social History Smoking Status: Never smoker Non-prescribed substance use: denies use service: No Exam Narrative: Exam Narrative: Constitutional: Well-developed, well-nourished, no acute distress. HEENT: Facial wound on the right cheek looks rather good with no sign of infection or drainage. The wound edges are nicely approximated. There is some mild swelling in this area which would be typical for her injury. Neck: Normal range of motion. Nontender. Supple. Heart: Regular. No murmurs. Normal rate. Intact distal pulses. Lungs: Clear to auscultation. No chest discomfort. No wheezes, rhonchi, or rales. Abdomen: Normal bowel sounds. Nontender. No rebound tenderness. Genitalia: Deferred. Back: No midline tenderness. Normal range of motion. Extremities: Normal range of motion. No injury. Skin: Intact. Warm. No erythema or pallor. Fine pruritic rash on the volar aspect of her forearms. Neurologic: No weakness. Alert and oriented. Spurling's test is positive when extending her neck and rotating to the right causing increased symptoms radiating out into her right hand. Psychiatric: No suicidality. No anxiety or depression. No insomnia. Nursing notes and vitals signs are reviewed. Const: Vital Signs, click to edit/add: Vital Signs - 24 hr 09/18/24 21:46 Temperature 98.2 F Pulse Rate [Left P ulse Oximeter] 84 Respiratory Rate 18 Blood Pressure [Ri ght Upper Arm] 117/73 Pulse Oximetry 97 Oxygen Delivery Me thod Room Air Course Vital Signs Vital signs: Initial Vital Signs Temperature 98.2 F 09/18/24 21:46 Temperature Source Temporal Artery Scan 09/18/24 21:46 Pulse Rate 84 09/18/24 21:46 Respiratory Rate 18 09/18/24 21:46 Blood Pressure 117/73 09/18/24 21:46 Blood Pressure Mean 87 09/18/24 21:46 Blood Pressure Position Sitting 09/18/24 21:46 Pulse Oximetry 97 09/18/24 21:46 Oxygen Delivery Method Room Air 09/18/24 21:46 Vital Signs Temperature 98.2 F 09/18/24 21:46 Pulse Rate 84 09/18/24 21:46 Respiratory Rate 18 09/18/24 21:46 Blood Pressure 117/73 09/18/24 21:46 Pulse Oximetry 97 09/18/24 21:46 Oxygen Delivery Method Room Air 09/18/24 21:46 Temperature 98.2 F 09/18/24 21:46 Pulse Rate 84 09/18/24 21:46 Respiratory Rate 18 09/18/24 21:46 Blood Pressure 117/73 09/18/24 21:46 Pulse Oximetry 97 09/18/24 21:46 Oxygen Delivery Method Room Air 09/18/24 21:46 Medical Decision Making MDM Narrative Medical decision making narrative: This patient comes in for recheck of her wound and reports a rash and some pain radiating down into her right arm. The wound on her face is looking quite good. I did see a picture of purulent drainage that was drained elsewhere. She is on 2 antibiotics currently in the seemed to be doing a nice job. It is not certain that the rash on her forearms only would be from either of those antibiotics. I encouraged her to continue those. I stated that the wound on her face looks quite good and I do not want to interrupt that normal healing process going forward. The patient did receive a prescription for triamcinolone cream. I also provided a prescription for Medrol Dosepak for sometime in the future probably after finishing her antibiotics where she can perhaps get benefit from her cervical radiculopathy. Discharge Plan Discharge Clinical Impression: Dog bite, Urticaria, Cervical radiculopathy Patient Disposition: Home w/ Parent or Adult Condition: Stable Additional Instructions: Continue current medications. Use triamcinolone cream as needed for rash and itching. Medrol Dosepak and be started after antibiotic therapies completed. Prescriptions: New triamcinolone acetonide 0.1 % cream 1 applic topical BID Qty: 30 0RF methylprednisolone [Medrol (Eliot)] 4 mg tablets,dose pack See Rx Instructions .ROUTE .COMPLEX Qty: 21 0RF Rx Instructions: orally per package directions No Action clindamycin HCl 300 mg capsule 300 mg PO 3XD trazodone 50 mg tablet 25 - 50 mg PO QPM PRN (Reason: insomnia) sulfamethoxazole-trimethoprim 800-160 mg tablet 1 tab PO BID nortriptyline 25 mg capsule PO sertraline 100 mg tablet 150 mg PO propranolol 10 mg tablet 10 mg PO dextroamphetamine-amphetamine 20 mg capsule,extended release 24hr 1 cap PO DAILY bupropion HCl 150 mg tablet extended release 24 hr 150 mg PO DAILY Follow Up/Referrals: Jolene Yao MD [Primary Care Provider, Pediatrics] Stand Alone Forms: [employer] Info Instructions
== END 2024-09-18 22:30 | disposition home or self-care (01) ==
PROVIDERS: Emergency Provider Emergency Medicine Emergency Medical Services; PCP Pediatrics
DX: L50.9 Urticaria, unspecified (principal); M54.12 Radiculopathy, cervical region
CPT/HCPCS: 99283; 99284